=== PATIENT | male | born 1975 ===

== ENCOUNTER → 2017-12-17 | Outpatient (CLI) | payer OTHER ==
[~2017-12-17] MED LIST: CEPH500 PO; HYDACE5 PO
[2017-12-18 20:16] LABS: MDA Not Detected (NOTDET); MDEA Not Detected (NOTDET); MDMA Not Detected (NOTDET)
== END ==
LOC: LAB SRC 08:57
PROVIDERS: Physician Assistant
DX: Z51.81 Encounter for therapeutic drug level monitoring (principal); F98.8 Other specified behavioral and emotional disorders with onset usually occurring in childhood and adolescence; Z79.899 Other long term (current) drug therapy
CPT/HCPCS: G0480

== ENCOUNTER → 2018-04-23 | Outpatient (CLI) | payer OTHER | END | disposition home or self-care (01) | LOC: LAB 18:55 → LAB SHORT 18:55 | DX: Z51.81 Encounter for therapeutic drug level monitoring (principal); F11.21 Opioid dependence, in remission; Z79.899 Other long term (current) drug therapy | CPT/HCPCS: G0480 ==

== ENCOUNTER 2018-11-15 13:30 | Emergency (ER) | payer MEDICAID ==
[~2018-11-15] VITALS: Ht 167.6 cm; Wt 81.7 kg
[2018-11-15] MEDS ORDERED: CEPH500 PO (13:56)
[2018-11-15] MEDS ORDERED: Bactrim Ds Tab1 EACH PO (13:56)
== END 2018-11-15 14:00 | disposition home or self-care (01) ==
LOC: ER 13:30
DX: S90.822A Blister (nonthermal), left foot, initial encounter (principal); S90.821A Blister (nonthermal), right foot, initial encounter; L03.116 Cellulitis of left lower limb; L03.115 Cellulitis of right lower limb; X58.XXXA Exposure to other specified factors, initial encounter; Z79.891 Long term (current) use of opiate analgesic; F17.200 Nicotine dependence, unspecified, uncomplicated
CPT/HCPCS: 99282

== ENCOUNTER 2019-10-12 22:20 | Emergency (ER) | payer SELFPAY ==
[~2019-10-12] VITALS: Ht 167.6 cm; Wt 81.7 kg
[~2019-10-12 22:20] MED LIST changes: +Bactrim Ds Tab1 EACH PO
== END 2019-10-12 23:22 | disposition left against medical advice (07) ==
LOC: ER 22:20
DX: Z53.21 Procedure and treatment not carried out due to patient leaving prior to being seen by health care provider (principal)

== ENCOUNTER 2021-10-25 00:56 | Emergency (ER) | payer OTHER ==
[~2021-10-25] VITALS: Ht 170.2 cm; Wt 77.1 kg
[~2021-10-25 00:56] MED LIST changes: +BUSP10 PO; +MIRT30 PO; +OLAN5 PO
== END 2021-10-25 01:49 | disposition home or self-care (01) ==
LOC: ER 00:56
DX: F15.10 Other stimulant abuse, uncomplicated (principal); Z79.899 Other long term (current) drug therapy; F17.200 Nicotine dependence, unspecified, uncomplicated
CPT/HCPCS: 71045; 93005; 93010; 99284-25

== ENCOUNTER 2022-03-08 03:52 | Emergency (ER) | payer OTHER ==
[~2022-03-08] VITALS: Ht 188 cm; Wt 90.7 kg
== END 2022-03-08 04:47 | disposition home or self-care (01) ==
LOC: ER 03:52
DX: Z02.89 Encounter for other administrative examinations (principal); F17.200 Nicotine dependence, unspecified, uncomplicated
CPT/HCPCS: 99282

== ENCOUNTER 2022-05-10 09:12 | Emergency (ER) | payer OTHER ==
[~2022-05-10] VITALS: Ht 170.2 cm; Wt 79.4 kg
== END 2022-05-10 11:44 | disposition home or self-care (01) ==
LOC: ER 09:12
DX: K43.9 Ventral hernia without obstruction or gangrene (principal); F17.200 Nicotine dependence, unspecified, uncomplicated
CPT/HCPCS: 76857